=== PATIENT | male | born 1980 | race Caucasian/White ===

== ENCOUNTER 2018-11-27 14:49 | Emergency (ER) | payer SELFPAY ==
[~2018-11-27] VITALS: Ht 180.3 cm; Wt 89.4 kg
[~2018-11-27 14:49] MED LIST: IBUP-1542 PO
[2018-11-27 15:18] VITALS: Ht 180.3 cm; Wt 89.4 kg
[2018-11-27] MEDS ORDERED: HYDROCODONE/APAP (10/325) TAB PO ONE (17:30)
[2018-11-27 19:45] VITALS: BP 134/83; PULSE 61; RESP 20
== END 2018-11-27 19:46 | disposition home or self-care (01) ==
LOC: FTE 14:49
DX: S63.280A Dislocation of proximal interphalangeal joint of right index finger, initial encounter (principal); W23.0XXA Caught, crushed, jammed, or pinched between moving objects, initial encounter; Y92.89 Other specified places as the place of occurrence of the external cause
CPT/HCPCS: 73140